=== PATIENT | female | born 1990 ===

== ENCOUNTER → 2019-03-02 | Outpatient (CLI) | payer OTHER | LOC: ULTRA 01:48 | DX: N63.14 Unspecified lump in the right breast, lower inner quadrant (principal); N63.41 Unspecified lump in right breast, subareolar; Z88.8 Allergy status to other drugs, medicaments and biological substances ==

== ENCOUNTER → 2019-09-21 | Outpatient (CLI) | payer OTHER | LOC: ULTRA 14:58 | DX: N63.14 Unspecified lump in the right breast, lower inner quadrant (principal) ==

== ENCOUNTER → 2020-05-09 | Outpatient (CLI) | payer OTHER | LOC: ULTRA 10:09 | PROVIDERS: ATTEND Family Medicine | DX: N63.41 Unspecified lump in right breast, subareolar (principal); D24.1 Benign neoplasm of right breast ==

== ENCOUNTER → 2020-05-23 | Outpatient (CLI) | payer OTHER ==
--- NOTE | 2020-05-26 10:07 | PATH ---
[facility] [address] [place] [address] PATHOLOGY RPT PROCEDURE Name: AILYN HERNANDEZ I Room #: REG KATHY Bills#: [id number] Admission: 05/23/20 Date of : 89 Discharge: Report #: [id number] Path Case #: [id number] [facility] Accession Number: [id number] . 01 Material submitted: . breast - RIGHT BREAST MASS, 6:00. Modifiers: right, 6:00 . 02 Diagnosis: Breast, right breast 6:00 subareolar, needle core biopsy: - Fibroadenoma associated with usual ductal hyperplasia, as well as columnar cell change and focal apocrine metaplasia. - Negative for atypia or malignancy. (IUV:pit 05/25/2020) QTP 05/25/2020 1307 Local . 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 Parish Chery who concurs with my diagnosis. (IUV:pit 05/25/2020) . 02 Electronically signed: . Julienne Grossman MD, Pathologist NPI- [id number] . 01 Gross description: . Received in formalin labeled "Ailyn Hernandez, right breast 6:00 SA" is a 3.0 x 2.8 x 0.8 cm aggregate of sims white cylindrical soft tissue cores. The specimen is submitted entirely in cassettes A1-A3. The specimen is removed from the patient and placed in formalin at 1430 on 05/23/2020. The specimen is removed from formalin at 1850 on 05/24/2020. ([facility]; 05/24/2020) [facility] 05/24/2020 0828 Local . 02 Pathologist provided ICD-10: D24.1, N62, N60.81 . 02 CPT . 619166 Specimen Comment: A courtesy copy of this report has been sent to [phone], [phone] Specimen Comment: [phone] Specimen Comment: Report sent to / DR MCCLOUD Performed at: [address] [facility], [place] [id number] MD Edgar Cole MD Phone: [phone] Performed at: [address] [address] PATHOLOGY RPT PROCEDURE Name: AILYN HERNANDEZ I Room #: REG KATHY Bills#: [id number] Admission: 05/23/20 Date of : 89 Discharge: Report #: [id number] Path Case #: [id number] [facility] [place] [address], [place], [place] [id number] MD Julienne Grossman MD Phone: [phone]
== END ==
LOC: ULTRA 10:40
PROVIDERS: ATTEND Radiology Diagnostic Radiology
DX: D24.1 Benign neoplasm of right breast (principal); N62 Hypertrophy of breast; N60.81 Other benign mammary dysplasias of right breast; R92.1 Mammographic calcification found on diagnostic imaging of breast